=== PATIENT | female | born 1975 | race Caucasian/White ===

== ENCOUNTER 2021-03-22 18:18 | Emergency (ER) | payer OTHER ==
[2021-03-22] MEDS ORDERED: TETANUS/DIPHTHERIA/PERTUSSIS 0.5 ML SYRINGE IM ONE (19:45)
--- NOTE | 2021-03-22 19:47 | ED Physician Documentation ---
History of Present Illness - Stated complaint Stated Complaint: RT FOOT VS ANTHONY NAIL - Chief complaint Chief Complaint: Wound - Additonal information Additional information: 46-year-old female here for evaluation of a puncture wound on the bottom of her right foot after stepping on a anthony nail. Unknown last tetanus. No other associated injury or concerns. Review of Systems Constitutional: reports: Reviewed and negative Ears: reports: Reviewed and negative Nose: reports: Reviewed and negative Throat: reports: Reviewed and negative Cardiac: reports: Reviewed and negative Respiratory: reports: Dyspnea : reports: Reviewed and negative Skin: reports: Other (Puncture wound) Musculoskeletal: reports: Reviewed and negative PD PAST MEDICAL HISTORY - Allergies Allergies/Adverse Reactions: Allergies Allergy/AdvReac Type Severity Reaction Status Date / Time amoxicillin AdvReac Unknown Verified 03/22/21 18:30 PD ED PE EXPANDED - Extremities Extremities: Right foot (Puncture wound on the lateral side of the right foot on the sole. No surrounding erythema. No tenderness.) Results - Vitals Vitals: Vital Signs - 24 hr 03/22/21 18:25 Temperature 36.5 C Heart Rate 95 Respiratory 18 Rate Blood Pressure 148/85 H O2 Saturation 98 Oxygen O2 Source Room air - Rads (name of study) right foot Radiology: Final report received (No foreign body no fracture) PD MEDICAL DECISION MAKING - ED course Complexity details: reviewed results, re-evaluated patient, d/w patient, d/w family ED course: 46-year-old female here for puncture wound on the sole of the right foot sustained this afternoon. Unknown last tetanus. Tetanus was updated today. Will defer antibiotics unless concerns of infection occur. Emergent return precautions discussed. Impression: puncture wound right foot Departure - Departure Condition: Critical Comments: Your tetanus was updated today. The x-ray of your foot is normal. We do not recommend antibiotics on most puncture wounds unless concerns of infection develop. Therefore if you develop redness swelling erythema milky drainage or have increased pain please return to the ER
--- NOTE | 2021-03-22 19:49 | XRAY Report ---
PROCEDURE: Foot 2 View RT INDICATIONS: wound, possible FB TECHNIQUE: 2 views of the foot were acquired. COMPARISON: None. FINDINGS: Bones: No fractures or dislocations. No suspicious bony lesions. Soft tissues: No radiopaque foreign bodies identified. IMPRESSION: 1. No fracture or radiopaque foreign bodies. Reviewed by: Parveen Iglesias MD on 03/22/2021 7:48 PM PDT Approved by: Parveen Iglesias MD on 03/22/2021 7:48 PM PDT Station ID: [id number]
[2021-03-22 20:13] VITALS: BP 131/72
== END 2021-03-22 20:14 | disposition home or self-care (01) ==
LOC: ED 18:18
DX: S91.331A Puncture wound without foreign body, right foot, initial encounter (principal); W22.09XA Striking against other stationary object, initial encounter
CPT/HCPCS: 90471; 99281; 99283